=== PATIENT | female | born 1970 | race Caucasian/White ===

== ENCOUNTER 2024-08-29 00:11 | Day surgery (SDC) | payer OTHER ==
[~2024-08-29 00:11] MED LIST: AMLO5; AMLODIPINE/VALSARTAN; LOSA50; OMEPRAZOLE MAGN20 MG; PROGESTERONE100 MG; Sod Ferric Gluc Complx/Sucrose 125 MG in NS 100 ML IV SCH
[2024-08-29 13:36] VITALS: BP 140/83
== END 2024-08-29 14:41 | disposition home or self-care (01) ==
LOC: ATC 00:11
DX: E61.1 Iron deficiency (principal); K21.9 Gastro-esophageal reflux disease without esophagitis; E66.812 Obesity, class 2; Z68.38 Body mass index [BMI] 38.0-38.9, adult; Z87.891 Personal history of nicotine dependence
CPT/HCPCS: 96365; J2916

== ENCOUNTER 2024-09-02 03:05 | Day surgery (SDC) | payer OTHER ==
[2024-09-02] MEDS ORDERED: Sod Ferric Gluc Complx/Sucrose 125 MG in NS 100 ML IV SCH (06:00)
[2024-09-02 15:42] VITALS: BP 158/79
== END 2024-09-02 16:39 | disposition home or self-care (01) ==
LOC: ATC 03:05
DX: E61.1 Iron deficiency (principal); K21.9 Gastro-esophageal reflux disease without esophagitis; E66.9 Obesity, unspecified; Z68.39 Body mass index [BMI] 39.0-39.9, adult; Z87.891 Personal history of nicotine dependence; Z79.899 Other long term (current) drug therapy
CPT/HCPCS: 96365; J2916

== ENCOUNTER 2024-09-06 00:33 | Day surgery (SDC) | payer OTHER ==
[~2024-09-06 00:33] MED LIST changes: -Sod Ferric Gluc Complx/Sucrose 125 MG in NS 100 ML IV SCH
[2024-09-06] MEDS ORDERED: Sod Ferric Gluc Complx/Sucrose 125 MG in NS 100 ML IV SCH (01:00)
[2024-09-06 16:19] VITALS: BP 122/64
== END 2024-09-06 17:16 | disposition home or self-care (01) ==
LOC: ATC 00:33
DX: E61.1 Iron deficiency (principal); K21.9 Gastro-esophageal reflux disease without esophagitis; E66.812 Obesity, class 2; Z87.891 Personal history of nicotine dependence
CPT/HCPCS: 96365; J2916

== ENCOUNTER 2024-09-10 03:25 | Day surgery (SDC) | payer OTHER ==
[~2024-09-10 03:25] MED LIST changes: +Sod Ferric Gluc Complx/Sucrose 125 MG in NS 100 ML IV SCH
[2024-09-10 14:04] VITALS: BP 142/66
== END 2024-09-10 15:09 | disposition home or self-care (01) ==
LOC: ATC 03:25
DX: E61.1 Iron deficiency (principal); K21.9 Gastro-esophageal reflux disease without esophagitis; E66.812 Obesity, class 2; Z87.891 Personal history of nicotine dependence
CPT/HCPCS: 96365; J2916

== ENCOUNTER 2024-09-13 03:11 | Day surgery (SDC) | payer OTHER ==
[~2024-09-13 03:11] MED LIST changes: -Sod Ferric Gluc Complx/Sucrose 125 MG in NS 100 ML IV SCH
[2024-09-13] MEDS ORDERED: Sod Ferric Gluc Complx/Sucrose 125 MG in NS 100 ML IV SCH (06:00)
[2024-09-13 16:07] VITALS: BP 131/68
== END 2024-09-13 17:22 | disposition home or self-care (01) ==
LOC: ATC 03:11
DX: E61.1 Iron deficiency (principal); I10 Essential (primary) hypertension; K21.9 Gastro-esophageal reflux disease without esophagitis; E66.812 Obesity, class 2; Z68.38 Body mass index [BMI] 38.0-38.9, adult; Z87.891 Personal history of nicotine dependence; Z79.899 Other long term (current) drug therapy
CPT/HCPCS: 96365; J2916

== ENCOUNTER 2024-09-17 04:50 | Day surgery (SDC) | payer OTHER ==
[~2024-09-17 04:50] MED LIST changes: +Sod Ferric Gluc Complx/Sucrose 125 MG in NS 100 ML IV SCH
[2024-09-17 08:12] VITALS: BP 131/70
== END 2024-09-17 09:10 | disposition home or self-care (01) ==
LOC: ATC 04:50
DX: E61.1 Iron deficiency (principal); K21.9 Gastro-esophageal reflux disease without esophagitis; I10 Essential (primary) hypertension; E66.812 Obesity, class 2; Z68.39 Body mass index [BMI] 39.0-39.9, adult; Z87.891 Personal history of nicotine dependence; Z79.899 Other long term (current) drug therapy; Z98.84 Bariatric surgery status
CPT/HCPCS: 96365; J2916

== ENCOUNTER 2024-09-19 02:02 | Day surgery (SDC) | payer OTHER ==
[~2024-09-19 02:02] MED LIST changes: -Sod Ferric Gluc Complx/Sucrose 125 MG in NS 100 ML IV SCH
[2024-09-19] MEDS ORDERED: Sod Ferric Gluc Complx/Sucrose 125 MG in NS 100 ML IV SCH (06:00)
[2024-09-19 15:08] VITALS: BP 119/74
== END 2024-09-19 16:10 | disposition home or self-care (01) ==
LOC: ATC 02:02
DX: E61.1 Iron deficiency (principal); K21.9 Gastro-esophageal reflux disease without esophagitis; I10 Essential (primary) hypertension; E66.812 Obesity, class 2; Z68.39 Body mass index [BMI] 39.0-39.9, adult; Z87.891 Personal history of nicotine dependence; Z79.899 Other long term (current) drug therapy; Z98.84 Bariatric surgery status
CPT/HCPCS: 96365; J2916

== ENCOUNTER 2024-09-23 03:39 | Day surgery (SDC) | payer OTHER ==
[~2024-09-23 03:39] MED LIST changes: +Sod Ferric Gluc Complx/Sucrose 125 MG in NS 100 ML IV SCH
[2024-09-23 15:11] VITALS: BP 135/83
== END 2024-09-23 16:11 | disposition home or self-care (01) ==
LOC: ATC 03:39
DX: E61.1 Iron deficiency (principal); K21.9 Gastro-esophageal reflux disease without esophagitis; I10 Essential (primary) hypertension; E66.812 Obesity, class 2; Z68.39 Body mass index [BMI] 39.0-39.9, adult; Z79.899 Other long term (current) drug therapy; Z87.891 Personal history of nicotine dependence; Z98.84 Bariatric surgery status
CPT/HCPCS: 96365; J2916